=== PATIENT | male | born 1980 | race African-American/Black ===

== ENCOUNTER 2022-03-20 12:10 | Emergency (ER) | payer OTHER ==
[2022-03-20] MEDS ORDERED: LIDOCAINE 1% MPF 5 ML VIAL ONE (12:29)
--- NOTE | 2022-03-20 12:34 | ER ---
Nurse's Notes [facility] Name: Chacorta Ramírez Age: 41 yrs Sex: Male : 1980 Arrival Date: 03/20/2022 Time: 12:12 Bed 11 Private MD: Diagnosis: Foreign body left calf Presentation: 03/20 12:20 Chief complaint: Patient states: fish hook to left lower leg just INFORMATICIST. Coronavirus aa5 screen: At this time, the client does not indicate any symptoms associated with coronavirus-19. Ebola Screen: No symptoms or risks identified at this time. Initial Sepsis Screen: Does the patient meet any 2 criteria? No. Patient's initial sepsis screen is negative. Does the patient have a suspected source of infection? No. Patient's initial sepsis screen is negative. Risk Assessment: Do you want to hurt yourself or someone else? Patient reports no desire to harm self or others. Onset of symptoms was March 20, 2022. 12:20 Method Of Arrival: Ambulatory aa5 12:20 Acuity: BRANNON 4 aa5 Triage Assessment: 12:55 General: Appears in no apparent distress. iw Historical: - Allergies: 12:21 No Known Allergies; aa5 - PMHx: 12:21 None; aa5 - PSHx: 12:21 None; aa5 - Immunization history:: Last tetanus immunization: < 5 years ago. - Social history:: Smoking status: Patient denies any tobacco usage or history of. Screenin:55 Abuse screen: Denies threats or abuse. Denies injuries from another. Nutritional iw screening: No deficits noted. Tuberculosis screening: No symptoms or risk factors identified. Fall Risk None identified. Assessment: 12:17 General: Appears uncomfortable, Behavior is calm, cooperative. Pain: Complains of pain aa5 in lateral aspect of left calf Pain currently is 5 out of 10 on a pain scale. Neuro: Level of Consciousness is awake, alert, obeys commands, Oriented to person, place, time, situation. Cardiovascular: Patient's skin is warm and dry. Respiratory: Airway is patent Respiratory effort is even, unlabored, Respiratory pattern is regular, symmetrical. GI: No signs and/or symptoms were reported involving the gastrointestinal system. : No signs and/or symptoms were reported regarding the genitourinary system. EENT: No signs and/or symptoms were reported regarding the EENT system. Derm: Skin is pink, warm \T\ dry. Musculoskeletal: Range of motion: intact in all extremities. Injury Description: Fish hook noted to lateral aspect of left calf. Vital Signs: 12:20 BP 122 / 86; Pulse 78; Resp 18 S; Temp 98.3(TE); Pulse Ox 100% on R/A; aa5 ED Course: 12:12 Patient arrived in ED. as 12: Carrie Cheema PA is PHCP. en 12: Uday Soto MD is Attending Physician. en 12:20 Albina Sorenson, RN is Primary Nurse. aa5 12:20 Arm band placed on. aa5 12:20 Patient has correct armband on for positive identification. aa5 12:21 Triage completed. aa5 12:32 Carlos Albert MD is Referral Physician. en 12:55 No provider procedures requiring assistance completed. Patient did not have IV access aa5 during this emergency room visit. Administered Medications: 12:23 Drug: Lidocaine (1 %) 5 mg {Note: administered by provider for FB removal. .} Route: aa5 Infiltration; 12:54 Drug: KeFLEX (cephalexin) 500 mg Route: PO; iw 12:55 Follow up: Response: No adverse reaction iw Outcome: 12:33 Discharge ordered by . en 12:55 Discharged to home ambulatory, with friend. iw 12:55 Condition: good 12:55 Discharge instructions given to patient, Instructed on discharge instructions, follow up and referral plans. medication usage, Demonstrated understanding of instructions, follow-up care, medications, Prescriptions given X 1. 12:55 Patient left the ED. iw Signatures: Cintia Mayberry Irene, RN RN iw Albina Sorenson, RN RN aa5 Carrie Cheema PA PA en
--- NOTE | 2022-03-20 12:34 | EDPHYS ---
Physician Documentation [facility] Name: Chacorta Ramírez Age: 41 yrs Sex: Male : 1980 Arrival Date: 03/20/2022 Time: 12:12 Bed 11 Private MD: ED Physician Uday Soto HPI: 03/20 12:29 This 41 yrs old Black Male presents to ER via Ambulatory with complaints of Puncture en Wound To Leg - fish hook. 12:29 49-year-old male presents to ED with fishhook in the left lateral calf prior to en arrival. No numbness, tingling. Bleeding is controlled. Last tetanus was 2 years ago. Historical: - Allergies: 12:21 No Known Allergies; aa5 - PMHx: 12:21 None; aa5 - PSHx: 12:21 None; aa5 - Immunization history:: Last tetanus immunization: < 5 years ago. - Social history:: Smoking status: Patient denies any tobacco usage or history of. ROS: 12:29 Constitutional: Negative for fever, chills, and weight loss. en 12:29 Constitutional: Negative for body aches, fatigue, fever. 12:29 MS/extremity: Positive for Pain the lateral calf of the left leg. 12:29 Skin: Positive for Puncture wound to the left lateral leg with fishhook.. 12:29 Neuro: Negative for numbness, tingling. 12:29 All other systems are negative. Exam: 12:29 Constitutional: This is a well developed, well nourished patient who is awake, alert, en and in no acute distress. 12:29 Constitutional: The patient appears in no acute distress, alert, awake. 12:29 Cardiovascular: Rate: normal, Rhythm: regular, Pulses: no pulse deficits are appreciated, Heart sounds: normal, no murmur, no rub, no gallop. 12:29 Respiratory: the patient does not display signs of respiratory distress, Respirations: normal, Breath sounds: are clear throughout, no rales, rhonchi, no stridor, no wheezing. 12:29 Musculoskeletal/extremity: Full range of motion of left lower extremity. Visible fishhook in the lateral calf. 2+ DP, PT pulses. Calf supple. 12:29 Skin: Patient in left lateral calf.. Vital Signs: 12:20 BP 122 / 86; Pulse 78; Resp 18 S; Temp 98.3(TE); Pulse Ox 100% on R/A; aa5 Procedures: 12:29 Foreign Body Removal: a fishhook, from the left lateral aspect of left calf, by using a en hemostat, Dressinx4s were used to dress the wound, The patient tolerated the removal well, Anesthetized with 2 cc of 1% lidocaine plain. Betadine prep. Foreign body removed in tact.. MDM: 12:19 Patient medically screened. en 12:29 Differential diagnosis: Foreign body to left lateral calf. Data reviewed: vital signs, en nurses notes, and as a result, I will discharge patient. Medical screen evaluation completed. EMTALA emergency medical condition absent. Medical screen evaluation completed. [facility]. ED course: Wound care discussed.. Administered Medications: 12:23 Drug: Lidocaine (1 %) 5 mg {Note: administered by provider for FB removal. .} Route: aa5 Infiltration; 12:54 Drug: KeFLEX (cephalexin) 500 mg Route: PO; iw 12:55 Follow up: Response: No adverse reaction iw Disposition: 13:24 Co-signature as Attending Physician, Uday Soto MD I agree with the assessment and kdr plan of care. Disposition Summary: 03/20/22 12:33 Discharge Ordered Location: Home en Problem: new en Symptoms: have improved en Condition: Stable en Diagnosis - Foreign body left calf en Followup: en - With: Carlos Albert MD - When: As needed - Reason: Discharge Instructions: - Discharge Summary Sheet en - Foreign Body en Forms: - Medication Reconciliation Form en - Thank You Letter en - Antibiotic Education en - Prescription Opioid Use en Prescriptions: - cephalexin 500 mg Oral capsule - take 1 capsule by ORAL route every 6 hours for 7 days; 28 capsule; Refills: 0, en Product Selection Permitted Signatures: Uday Soto MD MD kdr Eusebia Baptiste RN RN iw Albina Sorenson RN RN aa5 Carrie Cheema PA PA en
[2022-03-20] MEDS ORDERED: CEPHALEXIN 250 MG CAP ONE (12:57)
[2022-03-20 13:05] VITALS: BP 122/86; TEMP 98.3; O2SAT 100
== END 2022-03-20 12:55 | disposition home or self-care (01) ==
LOC: ER 12:10 → EDSEX 12:10 → ER 12:55
DX: S81.842A Puncture wound with foreign body, left lower leg, initial encounter (principal)
CPT/HCPCS: 99283